=== PATIENT | female | born 1990 | race African-American/Black ===

== ENCOUNTER 2019-05-08 20:45 | Emergency (ER) | payer MEDICARE, MEDICAID ==
[~2019-05-08] VITALS: Ht 121.9 cm; Wt 32.2 kg
[2019-05-08 21:07] VITALS: BP 200/110
[2019-05-08] MEDS ORDERED: LIDOCAINE 1% PF 2 ML VIAL. INJ ONE (21:30)
[2019-05-08] MEDS ORDERED: DIPHTH,PERTUSS(ACELL),TET TOX 0.5 ML DISP.SYRIN. VAX IM ONE (21:30)
[2019-05-08] MEDS ORDERED: LIDOCAINE/EPI/TETRACAINE TOPICAL GEL 3 ML. TP ONE (21:30)
--- NOTE | 2019-05-08 23:57 | PHYS DOC ---
Past Medical History Past Medical History: Seizure Additional Past Medical Histor: CEREBRAL PALSY (SHERITA ANGEL APRN) Alcohol Use: None Drug Use: None (SHERITA ANGEL APRN) Adult General Chief Complaint Chief Complaint: LACERATION/AVULSION HPI HPI Patient is a 28 year old AA female who was brought to the ER by her caregivers who report a laceration above pt's left eyebrow. Caretakers state that patient was eating dinner when she hit her head on the table. They deny any LOC or nausea/vomiting after the injury. They state that the patient's last tetanus was greater than 5 years ago. Caregivers deny any decreased level of consciousness and report that the patient's behavior is normal for patient, she has a hx of cerebral palsy and is non-verbal. ROS Caregivers deny any fever, wheezing, SOA, nausea, vomiting, or LOC. All other systems were reviewed and found to be within normal limits, except as documented in this note. (SHERITA ANGEL APRN) Review of Systems Review of Systems See Above (SHERITA ANGEL APRN) Current Medications Current Medications Current Medications Medications (Trade) Dose Ordered Sig/Mildred Start Time Stop Time Status Last Admin Dose Admin Diphtheria/ Tetanus/Acell Pertussis (Boostrix) 0.5 ml ONCE ONCE 05/08/19 21:30 05/08/19 21:31 DC 05/08/19 22:11 0.5 ML Lidocaine HCl (Xylocaine-Mpf 1% 2ml Vial) 6 ml 1X ONCE 05/08/19 21:30 05/08/19 21:31 DC 05/08/19 22:11 6 ML Lidocaine/ Epinephrine (Let Topical) 3 ml 1X ONCE 05/08/19 21:30 05/08/19 21:31 DC 05/08/19 22:11 3 ML Neomycin/ Polymyxin/ Bacitracin (Triple Antibiotic Ointment) 1 pkt 1X ONCE 05/09/19 00:15 05/09/19 00:14 DC 05/09/19 00:12 1 PKT (MARYJANE DEVINE DO) Allergies Allergies Allergies Coded Allergies Type Severity Reaction Last Updated Verified No Known Drug Allergies 05/08/19 No (MARYJANE DEVINE DO) Physical Exam Physical Exam Constitutional: Well developed, well nourished, no acute distress, non-toxic appearance. [] HENT: Normocephalic, atraumatic, bilateral external ears normal, nose normal. [] Eyes: PERRLA, EOMI, conjunctiva normal, no discharge. [] Neck: Normal range of motion, no tenderness, supple, no stridor. [] Cardiovascular:Heart rate regular rhythm Lungs & Thorax: respirations even and unlabored, no retractions Skin: Warm, dry, no erythema, no rash; a 3.5 cm verticle laceration is noted above left eyebrow, no active bleeding. Extremities: RLE: No cyanosis, no clubbing, ROM intact, no edema, PMS intact [] Neurologic: Alert and oriented normal to patient, pt is non-verbal, Pt has CP Psychologic: Affect normal, judgement normal, mood normal. [] (SHERITA ANGEL APRN) Current Patient Data Vital Signs Vital Signs Date Time Temp Pulse Resp B/P (MAP) Pulse Ox O2 Delivery O2 Flow Rate FiO2 05/08/19 21:07 98.5 58 20 200/110 (140) 100 Room Air 98.5 (DEVINE,MARYJANE Norris DO) EKG EKG [] (SHERITA ANGEL APRN) Radiology/Procedures Radiology/Procedures Laceration Repair by me: Anesthesia: 1% lidocaine locally 4 ml and topical LET Location: above left eyebrow Tendon/Joint/Nerves: No injury Foreign body: None detected after copious irrigation and exploration with 60 ml of NS Technique: 7 Simple Interrupted Sutures with 6-0 ethilon Complexity: No subcutaneous sutures/mucosal repair/edge excision Post Closure Length: 3.5 cm Patient's bleeding was easily controlled in the department and there is no indication of anemia. No evidence of compartment syndrome, neurologic injury, vascular injury, open joint, tendon laceration, or foreign body. Patient is appropriate for outpatient follow up. Scar minimization instructions given.[] (SHERITA ANGEL APRN) Course & Med Decision Making Course & Med Decision Making Pertinent Labs and Imaging studies reviewed. (See chart for details) [] (SHERITA ANGEL APRN) Dragon Disclaimer Dragon Disclaimer This electronic medical record was generated, in whole or in part, using a voice recognition dictation system. (BOGUSLAW,SHERITA D CARTON LINER) Departure Departure Impression: Primary Impression: Laceration of skin of forehead without complication Disposition: HOME, SELF-CARE Condition: STABLE Referrals: DANIEL LINDA MD (PCP) Patient Instructions: Facial Laceration, [id number] Additional Instructions: Keep the site clean and dry, Change the bandage twice daily and apply antibiotic ointment as needed. Return to the ER or follow up with your doctor in 5 days to have sutures removed. Take tylenol or ibuprofen as needed for pain. Attending Signature Attending Signature I have reviewed the PA/SLUBBER HAND's note and plan of care. I was available for consultation as needed during the patient's visit in the emergency department. I agree with the clinical impression, plan, and disposition. (MARYJANE DEVINE DO) Problem Qualifiers Primary Impression: Laceration of skin of forehead without complication Encounter type: initial encounter Qualified Codes: S01.81XA - Laceration without foreign body of other part of head, initial encounter SHERITA ANGEL APRN May 08, 2019 23:57 MARYJANE DEVINE DO May 12, 2019 16:00
[2019-05-09] MEDS ORDERED: NEOMY/BACITR/POLYMYXIN OINT PACKET. TP ONE (00:15)
== END 2019-05-09 00:07 | disposition home or self-care (01) ==
LOC: ER 20:45
DX: S01.112A Laceration without foreign body of left eyelid and periocular area, initial encounter (principal); W22.03XA Walked into furniture, initial encounter; Y93.89 Activity, other specified; Y92.89 Other specified places as the place of occurrence of the external cause; Y99.8 Other external cause status
CPT/HCPCS: 12013; 90471; 90715; 99284

== ENCOUNTER 2019-05-16 08:44 | Emergency (ER) | payer MEDICARE, MEDICAID ==
[~2019-05-16] VITALS: Ht 144.8 cm; Wt 32.2 kg
[2019-05-16 08:50] VITALS: BP 140/78
--- NOTE | 2019-05-16 08:58 | PHYS DOC ---
Past Medical History Past Medical History: Seizure Additional Past Medical Histor: CEREBRAL PALSY Alcohol Use: None Drug Use: None Adult General Chief Complaint Chief Complaint: SUTURE/STAPLE REMOVAL [facility] Patient is a 28 year old female who presents with 7 days ago was here because she fell forward in her wheelchair hitting her head on the table causing a vertical laceration to the midforehead. Patient received 6 stitches. Patient denies and caregiver denies any pain, nausea, vomiting, dizziness, LOC since incident. Review of Systems Review of Systems Constitutional: Denies fever or chills [] Eyes: Denies change in visual acuity, redness, or eye pain [] HENT: Denies nasal congestion or sore throat [] Respiratory: Denies cough or shortness of breath [] Cardiovascular: No additional information not addressed in HPI [] GI: Denies abdominal pain, nausea, vomiting, bloody stools or diarrhea [] : Denies dysuria or hematuria [] Musculoskeletal: Denies back pain or joint pain [] Integument: Forehead laceration with sutures intact. Denies rash or skin lesions [] Neurologic: Denies headache, focal weakness or sensory changes [] Endocrine: Denies polyuria or polydipsia [] All other systems were reviewed and found to be within normal limits, except as documented in this note. Allergies Allergies Allergies Coded Allergies Type Severity Reaction Last Updated Verified No Known Drug Allergies 05/08/19 No Physical Exam Physical Exam Constitutional: Well developed, well nourished, no acute distress, non-toxic appearance. [] HENT: Normocephalic, atraumatic, bilateral external ears normal, oropharynx moist, no oral exudates, nose normal. [] Eyes: PERRLA, EOMI, conjunctiva normal, no discharge. [] Neck: Normal range of motion, no tenderness, supple, no stridor. [] Cardiovascular:Heart rate regular rhythm, no murmur [] Lungs & Thorax: Bilateral breath sounds clear to auscultation [] Abdomen: Bowel sounds normal, soft, no tenderness, no masses, no pulsatile masses. [] Skin: Vertical well healed with scabbing laceration with sutures. Warm, dry, no erythema, no rash. [] Back: No tenderness, no CVA tenderness. [] Extremities: No tenderness, no cyanosis, no clubbing, ROM intact, no edema. [] Neurologic: Alert and oriented X 3, normal motor function, normal sensory fu nction, no focal deficits noted. [] Psychologic: Affect normal, judgement normal, mood normal. [] EKG EKG [] Radiology/Procedures Radiology/Procedures [] Course & Med Decision Making Course & Med Decision Making Patient is a 28 year old female who presents with 7 days ago was here because she fell forward in her wheelchair hitting her head on the table causing a vertical laceration to the midforehead. Patient received 6 stitches. Patient denies and caregiver denies any pain, nausea, vomiting, dizziness, LOC since incident. Laceration is scabbed over and well-healed. Sutures seem to be healed in the abdomen. Laceration edges are healed together and approximated. There are no signs of infection. No swelling or drainage. Denies fevers. PERRLA. Alert and oriented to normal mental status. Patient does have cerebral palsy. 6 sutures removed. One Steri-Strip placed at the bottom of the laceration due to slight bleeding because scab had to be pulled off to get the suture out. Patient to follow up with primary care provider if needed. Dragon Disclaimer Dragon Disclaimer This electronic medical record was generated, in whole or in part, using a voice recognition dictation system. Departure Departure Impression: Primary Impression: Encounter for removal of sutures Disposition: 01 HOME, SELF-CARE Condition: STABLE Referrals: DANIEL LINDA MD (PCP) Patient Instructions: Suture Removal Additional Instructions: Follow up with primary care if needed. DONAVON CRAIG APRN May 16, 2019 08:58
== END 2019-05-16 09:17 | disposition home or self-care (01) ==
LOC: ER 08:44
DX: S01.81XD Laceration without foreign body of other part of head, subsequent encounter (principal); W05.0XXD Fall from non-moving wheelchair, subsequent encounter
CPT/HCPCS: 99282